=== PATIENT | female | born 1965 | race Hispanic/Latino ===

== ENCOUNTER 2018-08-24 15:00 | Emergency (ER) | payer OTHER ==
[2018-08-24] MEDS ORDERED: ORPHENADRINE CITRATE 30 MG/ML ML ONE (15:27)
[2018-08-24] MEDS ORDERED: KETOROLAC TROMETHAMINE 60 MG/2 ML VIAL ONE (15:27)
== END 2018-08-24 16:22 | disposition home or self-care (01) ==
LOC: EDH 15:00
DX: M54.2 Cervicalgia (principal); M54.5 Low back pain; V49.09XA Driver injured in collision with other motor vehicles in nontraffic accident, initial encounter; Y93.89 Activity, other specified; Y92.89 Other specified places as the place of occurrence of the external cause; Y99.8 Other external cause status
CPT/HCPCS: 72040; 72100; 96372 ×2; 99284; J1885; J2360

== ENCOUNTER 2020-03-10 08:46 | Inpatient (IN) | payer OTHER ==
[~2020-03-10] VITALS: Ht 162.6 cm; Wt 68.5 kg
[2020-03-10] MEDS ORDERED: ALBUTEROL INHALER 90MCG/INH IH ONE (09:11)
[2020-03-10] MEDS ORDERED: METHYLPREDNISOLONE SOD SUCC 40MG/ML 1ML ONE (09:11)
[2020-03-10 09:47] LABS: HEMATOCRIT 43.5 % (36-48); LYMPHOCYTES % (AUTO) 17.7 % (21.0-51.0); MEAN CORPUSCULAR HEMOGLOBIN 29.5 pg (27.0-33.0); MEAN CORPUSCULAR HGB CONC 32.9 g/dL (32.0-36.0); MEAN CORPUSCULAR VOLUME 89.9 fL (79-99); MONOCYTES % (AUTO) 3.5 % (3.0-13.0); NEUTROPHILS % (AUTO) 78.6 % (40.0-77.0); PLATELET COUNT (AUTO) 206 K/uL (130-400); RED BLOOD CELL COUNT(AUTO) 4.84 MIL/uL (4.00-5.50); RED CELL DISTRIBUTION WIDTH 12.3 % (11.0-15.5); WHITE BLOOD COUNT (AUTO) 6.2 K/uL (4.8-10.8)
[2020-03-10 09:58] LABS: INR 0.96 (0.85-1.15); PARTIAL THROMBOPLASTIN TIME 30.7 SEC (26.3-35.5); PROTHROMBIN TIME 10.4 SEC (9.6-11.6)
[2020-03-10] MEDS ORDERED: IVERMECTIN 3 MG TAB PO SCH (10:15)
[2020-03-10 10:30] LABS: ALANINE AMINOTRANSFERASE 56 U/L (12-78); ALBUMIN 3.1 g/dL (3.5-5.0); ASPARTATE AMINOTRANSFERASE 50 U/L (10-37); BILIRUBIN,TOTAL 0.5 mg/dL (0.2-1.0); CARBON DIOXIDE 28 mmol/L (21-32); CHLORIDE 103 mmol/L (101-111); CREATINE KINASE, TOTAL 57 U/L (21-232); CREATININE 0.9 mg/dL (0.5-1.5); GLOMERULAR FILTR. RATE CALC 69 mL/min (>60); GLUCOSE,RANDOM 157 mg/dL (70-105); LACTATE DEHYDROGENASE 271 U/L (81-234); MYOGLOBIN 31 ng/mL (10-92); SODIUM SERUM 137 mmol/L (136-145); TOTAL PROTEIN, SERUM 7.5 g/dL (6.0-8.3); TROPONIN I < 0.04 ng/mL (0.00-0.06); UREA NITROGEN, BLOOD 10 mg/dL (7-18)
[2020-03-10 10:54] LABS: ERYTHROCYTE SEDIMENTATION RATE 80 MM/HR (0-30)
[2020-03-10] MEDS ORDERED: ENOXAPARIN SODIUM 80 MG/0.8 ML SQ ONE (11:34)
[2020-03-10] MEDS ORDERED: FAMOTIDINE/PF 20 MG/2 ML VIAL IV ONE (11:35)
[2020-03-10] MEDS ORDERED: LACTULOSE 20 GM/30 ML UDCUP PO PRN (12:15)
[2020-03-10] MEDS ORDERED: DOXYCYCLINE 100MG+NS 250ML IV SCH (12:15)
[2020-03-10] MEDS ORDERED: ACETAMINOPHEN-CODEINE 300/30MG TAB PO PRN (12:15)
[2020-03-10] MEDS ORDERED: DIPHENHYDRAMINE HCL 25 MG CAPSULE PO PRN (12:15)
[2020-03-10] MEDS: CEFTRIAXONE SODIUM 1 GM IVP SCH (12:15)
[2020-03-10] MEDS ORDERED: ZOLPIDEM TARTRATE 5 MG TAB PO PRN (12:15)
[2020-03-10] MEDS ORDERED: ONDANSETRON HCL 4 MG/2 ML VIAL IV PRN (12:15)
[2020-03-10] MEDS ORDERED: ACETAMINOPHEN 325 MG TAB PO PRN ×2 (12:15)
[2020-03-10] MEDS ORDERED: ERGOCALCIFEROL (VITAMIN D2) 50,000 UNIT CAPSULE PO ONE (12:15)
[2020-03-10] MEDS ORDERED: GUAIFENESIN-DM 200/20 MG 10 ML PO PRN (12:15)
[2020-03-10] MEDS ORDERED: DiphenhydrAMINE HCL 50 MG/ML VIAL IV PRN (12:15)
[2020-03-10] MEDS: DEXAMETHASONE SOD PHOSPHATE 4 MG/ML 1ML VIAL IVP SCH (12:15)
[2020-03-10] MEDS ORDERED: MAG HYDROX/AL HYDROX/SIMETH ES 30 ML SUSP UDCUP PO PRN (12:15)
[2020-03-10] MEDS ORDERED: HYDRALAZINE HCL 20 MG/ML VIAL IV PRN (12:15)
[2020-03-10 13:09] LABS: APPEARANCE,URINE Clear (CLEAR); BILIRUBIN,URINE Negative (NEGATIVE); COLOR,URINE Yellow (YELLOW); GLUCOSE, URINE (UA) Negative (NEGATIVE); KETONES,URINE 40 mg/dL (NEGATIVE); LEUKOCYTE ESTERASE ,URINE Trace (NEGATIVE); NITRATE,URINE Negative (NEGATIVE); OCCULT BLOOD,URINE Negative (NEGATIVE); PROTEIN,URINE Negative (NEGATIVE)
[2020-03-10] MEDS ORDERED: DEXTROSE 50%-WATER 50 ML DISP.SYRIN IV PRN (13:15)
[2020-03-10] MEDS ORDERED: PHARMACY COMMUNICATION MISC SCH (13:15)
[2020-03-10] MEDS ORDERED: GLUCAGON 1MG KIT 1 MG ML IM PRN (13:15)
[2020-03-10] MEDS ORDERED: CEFTRIAXONE SODIUM 1 GM ONE (13:22)
[2020-03-10] MEDS ORDERED: ERGOCALCIFEROL (VITAMIN D2) 50,000 UNIT CAPSULE ONE (13:22)
[2020-03-10 13:38] LABS: BACTERIA,URINE Rare /HPF (None Seen); RBC,URINE 0-1 /HPF (0-1); SQUAMOUS EPITHELIAL CELL,UR Few /HPF (0-2); WBC,URINE 0-1 /HPF (0-1)
[2020-03-10 13:45] VITALS: BP 144/77
[2020-03-10 15:00] VITALS: BP 142/76
--- NOTE | 2020-03-10 16:20 | NUR ---
DR. STOREY AWARE OF CONSULT STATES TO ADD TO HIS LISTS.
[2020-03-10] MEDS: INSULIN HUMULIN R 100 UNIT/ML 3ML SQ SCH ×2 (17:32→21:34)
[2020-03-10 19:37] VITALS: BP 132/80
[2020-03-10] MEDS ORDERED: ACETYLCYSTEINE 600 MG CAPSULE PO SCH (21:00)
[2020-03-10] MEDS: DOXYCYCLINE 100MG+NS 250ML 250 ML IV SCH (21:32)
[2020-03-10] MEDS: FAMOTIDINE 20MG TAB 20 MG TAB PO SCH (21:33)
[2020-03-10 22:58] VITALS: BP 115/71
[2020-03-11] MEDS: CEFTRIAXONE SODIUM 1 GM IVP SCH ×2 (00:04→11:32)
--- NOTE | 2020-03-11 02:55 | NUR ---
Convalescent Plasma done 2 units of Convalescent Plasma given per hospital protocol. Completed as ordered. No untoward reactions noted. Pt. tolerated it well. Distress / discomfort noted.
[2020-03-11 03:02] VITALS: BP 123/73
[2020-03-11] MEDS: INSULIN HUMULIN R 100 UNIT/ML 3ML SQ SCH ×2 (05:52→11:24)
[2020-03-11 06:01] LABS: LYMPHOCYTES % (AUTO) 28.4 % (21.0-51.0); MEAN CORPUSCULAR HGB CONC 33.6 g/dL (32.0-36.0); MEAN CORPUSCULAR VOLUME 89.2 fL (79-99); MONOCYTES % (AUTO) 5.3 % (3.0-13.0); NEUTROPHILS % (AUTO) 66.1 % (40.0-77.0); PLATELET COUNT (AUTO) 256 K/uL (130-400); RED BLOOD CELL COUNT(AUTO) 4.37 MIL/uL (4.00-5.50); RED CELL DISTRIBUTION WIDTH 12.2 % (11.0-15.5); WHITE BLOOD COUNT (AUTO) 4.7 K/uL (4.8-10.8)
[2020-03-11 06:07] LABS: ALANINE AMINOTRANSFERASE 53 U/L (12-78); ALBUMIN 3.1 g/dL (3.5-5.0); ASPARTATE AMINOTRANSFERASE 35 U/L (10-37); BILIRUBIN,TOTAL 0.3 mg/dL (0.2-1.0); CARBON DIOXIDE 25 mmol/L (21-32); CHLORIDE 106 mmol/L (101-111); CREATININE 0.8 mg/dL (0.5-1.5); GLOMERULAR FILTR. RATE CALC 79 mL/min (>60); GLUCOSE,RANDOM 155 mg/dL (70-105); LACTATE DEHYDROGENASE 245 U/L (81-234); POTASSIUM 4.1 mmol/L (3.5-5.1); SODIUM SERUM 139 mmol/L (136-145); TOTAL PROTEIN, SERUM 7.7 g/dL (6.0-8.3); UREA NITROGEN, BLOOD 12 mg/dL (7-18)
[2020-03-11] MEDS: FAMOTIDINE 20MG TAB 20 MG TAB PO SCH (07:49)
[2020-03-11] MEDS: DOXYCYCLINE 100MG+NS 250ML 250 ML IV SCH (07:49)
[2020-03-11 08:00] VITALS: BP 140/81
[2020-03-11] MEDS ORDERED: ENOXAPARIN SODIUM 40 MG/0.4 ML SYRINGE SQ SCH ×2 (09:00)
[2020-03-11] MEDS ORDERED: ASCORBIC ACID 500 MG TAB PO SCH (09:00)
[2020-03-11] MEDS ORDERED: ZINC SULFATE 220 CAPSULE PO SCH (09:00)
[2020-03-11] MEDS: DEXAMETHASONE SOD PHOSPHATE 4 MG/ML 1ML VIAL IVP SCH (11:32)
[2020-03-11 12:53] VITALS: BP 143/82
[2020-03-11] MEDS ORDERED: PHARMACY COMMUNICATION MISC SCH (13:30)
--- NOTE | 2020-03-11 14:16 | NUR ---
DC PLAN PATIENT LIVES WITH PARENTS. PATIENT HAS NO SERVICES OR DME'S. PLAN TO RETURN HOME. Addendum: 03/11/20 at 1439 by JASPAL GUTIERREZ RN CM Amended: Links added.
[2020-03-11] MEDS ORDERED: DEXA6TAB PO (14:20)
[2020-03-11] MEDS ORDERED: ASPI-1012 PO (14:20)
--- NOTE | 2020-03-11 15:27 | NUR ---
DISCHARGE INSTRUCTIONS GIVEN TO PATIENT, MADE AWARE OF NEED TO FOLLOW UP WITH PCP AT [facility] IN 3-4 WEEKS. MADE AWARE OF NEW RX FOR DEXAMETHASONE AND ASPIRIN. PATIENT AT THIS TIME IS SITTING UP AT EDGE OF BED, DENIES SHORTNESS OF BREATH, DENIES PAIN, DENIES COUGH. NO FEVER. PATIENT REPORTS SHE FEELS GOOD. IVS AND TELE REMOVED. PATIENT WILL BE DISCHARGED HOME
== END 2020-03-11 15:50 | disposition home or self-care (01) | DRG 177 ==
LOC: EDH 08:46 → EDHIP 08:47 → 2AH 14:20
PROVIDERS: ADMIT Internal Medicine; ATTEND Internal Medicine
PROC: XW13325 Transfusion of Convalescent Plasma (Nonautologous) into Peripheral Vein, Percutaneous Approach, New Technology Group 5 (ICD-10-PCS; principal; 2020-03-11)
DX: U07.1 COVID-19 (principal); J12.89 Other viral pneumonia; J96.01 Acute respiratory failure with hypoxia; E11.65 Type 2 diabetes mellitus with hyperglycemia; E78.5 Hyperlipidemia, unspecified; R79.89 Other specified abnormal findings of blood chemistry; I10 Essential (primary) hypertension; Z79.899 Other long term (current) drug therapy
CPT/HCPCS: 36415; 71045; 80053; 81001; 82550; 82728; 82948; 83605; 83615; 83874; 84145; 84484; 85025; 85378; 85610; 85651; 85730; 86140; 86850; 86900; 86901; 86927; 87040; 87088; 87426; 87804; 93005; G0378; J0696; J1100; J1650; J2920; J3490; U0003

== ENCOUNTER 2022-10-12 19:38 | Emergency (ER) | payer OTHER ==
[~2022-10-12] VITALS: Ht 162.6 cm; Wt 71.7 kg
[~2022-10-12 19:38] MED LIST: ASPI-1012 PO; DEXA6TAB PO
[2022-10-12 21:55] VITALS: BP 171/82
[2022-10-12 22:00] LABS: BASOPHILS % (AUTO) 0.6 % (0.0-5.0); EOSINOPHILS % (AUTO) 2.6 % (0.0-8.0); LYMPHOCYTES % (AUTO) 39.1 % (21.0-51.0); MEAN CORPUSCULAR HEMOGLOBIN 30.4 pg (27.0-33.0); MEAN CORPUSCULAR HGB CONC 33.4 g/dL (32.0-36.0); MEAN CORPUSCULAR VOLUME 91.1 fL (79-99); MONOCYTES % (AUTO) 4.6 % (3.0-13.0); PLATELET COUNT (AUTO) 221 K/uL (130-400); RED CELL DISTRIBUTION WIDTH 12.4 % (11.0-15.5); WHITE BLOOD COUNT (AUTO) 7.2 K/uL (4.8-10.8)
[2022-10-12 22:08] LABS: CREATININE 0.8 mg/dL (0.5-1.5); POTASSIUM 3.9 mmol/L (3.5-5.1)
[2022-10-12 22:12] LABS: APPEARANCE,URINE CLEAR (CLEAR); BILIRUBIN,URINE NEGATIVE (NEGATIVE); COLOR,URINE YELLOW (YELLOW); GLUCOSE, URINE (UA) >=1000 mg/dL (NEGATIVE); KETONES,URINE 5 mg/dL (NEGATIVE); LEUKOCYTE ESTERASE ,URINE 250 Leu/uL (NEGATIVE); NITRATE,URINE NEGATIVE (NEGATIVE); OCCULT BLOOD,URINE NEGATIVE (NEGATIVE); PH,URINE 5.5 (5.0-8.0); PROTEIN,URINE 10 mg/dL (NEGATIVE); UROBILINOGEN,URINE 0.2 mg/dL (0.2-1.0)
[2022-10-12 22:12] LABS: ALBUMIN 3.5 g/dL (3.5-5.0); TOTAL PROTEIN, SERUM 7.3 g/dL (6.0-8.3)
[2022-10-12 22:16] LABS: BACTERIA,URINE FEW /HPF (None Seen); MUCUS,URINE FEW LPF (None Seen); SQUAMOUS EPITHELIAL CELL,UR FEW /HPF (0-2)
[2022-10-12] MEDS ORDERED: CEFTRIAXONE 1G VIAL 1 GM in 0.9%NACL 50ML 50 ML IV ONE (23:00)
[2022-10-12] MEDS ORDERED: 0.9%NACL 1000ML 1,000 ML IV ONE (23:00)
[2022-10-12] MEDS ORDERED: CEFD300C3 PO (23:15)
[2022-10-12] MEDS ORDERED: CEFTRIAXONE 1G VIAL ONE (23:21)
== END 2022-10-13 00:44 | disposition home or self-care (01) ==
LOC: EDH 19:38
DX: N39.0 Urinary tract infection, site not specified (principal); I10 Essential (primary) hypertension; E11.9 Type 2 diabetes mellitus without complications; E78.00 Pure hypercholesterolemia, unspecified; Z79.899 Other long term (current) drug therapy; Z98.890 Other specified postprocedural states
CPT/HCPCS: 99285; 96365; 70450; 71045; 84484; 80053; 85025; 87088; 81001; 36415; 93005; J7030; J0696